=== PATIENT | male | born 1990 | race Caucasian/White ===

== ENCOUNTER 2024-01-27 08:24 | Outpatient (CLI) | payer OTHER, SELFPAY | END 2024-01-27 08:25 | disposition home or self-care (01) | LOC: NFLDREF 02-16 09:08 | PROVIDERS: PCP Family Medicine; Referring Provider Family Medicine; Visit Provider Family Medicine | DX: E66.9 Obesity, unspecified (principal); E78.00 Pure hypercholesterolemia, unspecified | CPT/HCPCS: 80053; 80061 ==